=== PATIENT | female | born 1990 | race African-American/Black ===

== ENCOUNTER 2018-06-22 04:16 | Inpatient (IN) | payer OTHER ==
--- NOTE | 2018-06-22 04:25 | PDOC ---
History of Present Illness - General Chief Complaint: Chest Pain Stated Complaint: CHEST PAIN/BACK PAIN 35 WEEKS Time Seen by Provider: 06/22/18 04:19 History Source: Patient - History of Present Illness Initial Comments: 06/22/18 04:25 The patient is a 27 year old female with a PMH of obesity, anemia at a self reported 35 weeks gestation who presents to the ED c/o acute onset of chest pain that radiates to her back. Pain started at 10:30 a.m. yesterday morning and progressively worsened prompting her visit to the ED this morning. Pain is sharp, radiates to her back and worse with deep breaths or lying down. No previous h/o similar pain. No prior evaluation by environmental scientists. Recent evaluation by sterilizer machine operator last week where she was told her cervix was dilated. Most recent U/S @ 33 weeks. The patient denies abdominal pain, diarrhea/constipation, nausea/vomiting, dysuria/hematuria, recent travel or sick contacts. NKDA Dr. Ching Santana M.D. OB-Auto Fleet Manager: Dr. Oswald Past History - Past Medical History Allergies/Adverse Reactions: Allergies Allergy/AdvReac Type Severity Reaction Status Date / Time No Known Allergies Allergy Verified 06/22/18 04:33 Home Medications: Ambulatory Orders NK [No Known Home Medication] 06/22/18 Review of Systems - Review of Systems Constitutional: No: Chills, Fever HEENTM: No: Blurred Vision, Hearing Loss Respiratory: Yes: Shortness of Breath. No: Cough, Wheezing Cardiac (ROS): Yes: Chest Pain. No: Lightheadedness, Palpitations, Syncope ABD/GI: No: Constipated, Diarrhea, Nausea, Vomiting *Physical Exam - Physical Exam General Appearance: Yes: Nourished, Appropriately Dressed HEENT: positive: Normal Voice, Hearing Grossly Normal Neck: positive: Trachea midline, Supple Respiratory/Chest: positive: Lungs Clear, Normal Breath Sounds Cardiovascular: positive: S1, S2. negative: Edema, JVD Vascular Pulses: Dorsalis-Pedis (R): 2+, Doralis-Pedis (L): 2+ Gastrointestinal/Abdominal: positive: Normal Bowel Sounds, Soft Extremity: positive: Normal Capillary Refill, Normal Inspection Integumentary: positive: Normal Color, Dry, Warm Neurologic: positive: Fully Oriented, Alert Heart Score/ECG Review - ECG Impressions Comment:: 06/22/18 06:42 HR 121, TWI in V3-V6, no PHYLLIS/STD; no previous ECG in EMR ED Treatment Course - LABORATORY CBC & Chemistry Diagram: 06/22/18 05:31 06/22/18 05:31 Medical Decision Making - Medical Decision Making 06/22/18 04:27 27 year old @ self-reported 35 weeks gestation who presents with acute onset of chest pain. Tachycardic (100's) other VS unremarkable.. Frontal diagnosis: r/o ACS, r/o PE, Myocarditis, GERD, Esophageal spasm, physiologic pains of . Will obtain EKG, Troponin, D-Dimer ( adjusted), T& S (to evaluate for the need for Rhogam, UA to evaluate for proteinuria. Patient to present to L&D following medical stabilization in ED. 06/22/18 05:42 Patient reassessed @ bedside Remains tachycardic (100's) other VSS Labs pending EKG shows TWI in V3-V6; no previous EKG in EMR 06/22/18 06:02 Hb 8.6, MCV 78.5 - likely 2/2 dilutional anemia of Leukocytosis 14.2 - likely reactive 2/2 to 06/22/18 06:21 Troponin 0.17 -? demand ischemia O2 NC Patient requires further cardiac evaluation in light of EKG and elevated Troponin in the setting of Heart Score 3 06/22/18 06:22 D-Dimer 1191, wnL for 3rd trimester of . 06/22/18 06:28 L&D to come evaluate patient @ bedside Patient notes pinkish toilet paper when urinating - UA pending UA/Urine Cx pending 06/22/18 06:35 L&D @ bedside, Doppler: FHR 139-170 06/22/18 06:41 Hospitalist microblogged 06/22/18 06:43 Repeat VS 104/55, HR 104 Patient counseled on plan of care 06/22/18 07:07 Patient signed out to Dr. Bland (Resident) and Dr. Garza (Attending). UA pending Hospitalist Microblogged *DC/Admit/Observation/Transfer Diagnosis at time of Disposition: Chest pain - Discharge Dispostion Condition at time of disposition: Fair Decision to Admit order: Yes - Referrals Referrals: ON STAFF,NOT [Primary Care Provider] - - Patient Instructions - Post Discharge Activity
[2018-06-22] MEDS ORDERED: ACETAMINOPHEN 1000 MG/100 ML VIAL (NON FORMULARY) IVPB ONE (04:28)
[2018-06-22] MEDS ORDERED: SODIUM CHLORIDE 0.9% 500 ML INFUS.BAG IV ONE ×2 (04:55→18:01)
--- NOTE | 2018-06-22 05:26 | PDOC ---
Attending Attestation - Resident Resident Name: BrendaLisa - ED Attending Attestation I have performed the following: I have examined & evaluated the patient, The case was reviewed & discussed with the resident, I agree w/resident's findings & plan - HPI HPI: 06/22/18 05:25 Pt comes with tachycardia and SOB in . She is at risk for PE. We will check a d-dimer - Physicial Exam PE: 06/22/18 05:26 Agree with resident exam - Medical Decision Making 06/22/18 05:26 Pt has an EKG that shows lateral flipped T waves and she has tachycardia 06/22/18 06:33 SHe has a +trop; she has low Hb/HCT; she has demand ischemia. She will be admitted to telemetry; SHe is getting monitoring now. 06/22/18 07:00 corrected d-dimer is normal range. 06/22/18 07:36 signed out to the day team Heart Score/ECG Review - ECG Intrepretation Rhythm: Regular Rhythm - Dawn Dawn: Normal - P and NE Prominent R with upright T in V1 (true posterior MD): No Delta Wave(s) Present: No WPW: No - QRS Poor R Wave Progression: No Q Wave Present: No - ST and T Early Repolarization: No Non Specific ST-T Wave changes: Yes Flattened T Waves: No Prolonged Q-T Interval: No - ECG Impressions Normal ECG: Yes Non-specific ST Elevation: No Ischemic Changes: Yes (lateral flipped t) Bradycardia: No Torsades nils Pointes: No WPW: No
[2018-06-22 05:43] LABS: BASO % 0.3 % (0-2.0); EOS % 0.1 % (0-4.5); HEMOGLOBIN 8.6 GM/dL (10.7-15.3); LYMPH % 8.8 % (8-40); MCH 25.9 pg (25.7-33.7); MCHC 32.9 g/dl (32.0-36.0); MEAN CELL VOLUME 78.5 fl (80-96); MEAN PLT VOLUME 8.2 fl (7.5-11.1); MONO % 4.3 % (3.8-10.2); NEUT % 86.5 % (42.8-82.8); PLATELET COUNT 262 K/MM3 (134-434); RBC 3.32 M/mm3 (3.60-5.2); RDW 16.3 % (11.6-15.6); WHITE BLOOD COUNT 14.2 K/mm3 (4.0-10.0)
[2018-06-22] MEDS ORDERED: ACETAMINOPHEN INJECTION 100 ML IVPB ONE (05:43)
[2018-06-22 06:15] LABS: ALBUMIN 2.6 g/dl (3.4-5.0); ALK PHOS 130 U/L (45-117); ANION GAP 9 MMOL/L (8-16); BILIRUBIN,TOTAL 0.2 mg/dL (0.2-1); BLOOD UREA NITROGEN 8 mg/dL (7-18); CALCIUM 8.2 mg/dL (8.5-10.1); CHLORIDE 105 mmol/L (98-107); CO2 23 mmol/L (21-32); CREATININE 0.6 mg/dL (0.55-1.3); GLUCOSE,RANDOM 120 mg/dL (74-106); POTASSIUM 3.5 mmol/L (3.5-5.1); SGOT/AST 10 U/L (15-37); SGPT/ALT 15 U/L (13-61); SODIUM 137 mmol/L (136-145); TOT PROT 6.7 g/dl (6.4-8.2)
--- NOTE | 2018-06-22 06:27 | PDOC ---
Attending Attestation - Resident Resident Name: Lisa Gutierrez - ED Attending Attestation I have performed the following: I have examined & evaluated the patient, The case was reviewed & discussed with the resident, I agree w/resident's findings & plan - HPI HPI: 06/22/18 06:25 Pt comes with chest pain and tachycardia - Physicial Exam PE: 06/22/18 06:26 Pt has tachy; she is SOB and she is 35 weeks . 06/22/18 06:26 Agree with resident exam
[2018-06-22 09:01] LABS: URINE APPEARANCE CLEAR; URINE BILIRUBIN NEGATIVE (<2.0 mg/dL); URINE COLOR LTYELLOW; URINE GLUCOSE (UA) NEGATIVE (NEGATIVE); URINE KETONE NEGATIVE (NEGATIVE); URINE LEUK ESTERASE 2+ (NEGATIVE); URINE NITRITE NEGATIVE (NEGATIVE); URINE PROTEIN NEGATIVE (NEGATIVE); URINE UROBILINOGEN NEGATIVE mg/dL (0.2-1.0)
[2018-06-22 09:30] LABS: EPI CELLS RARE /HPF (FEW)
--- NOTE | 2018-06-22 10:28 | EKG ---
Test Reason : Blood Pressure : / mmHG Vent. Rate : 121 BPM Atrial Rate : 121 BPM P-R Int : 138 ms QRS Dur : 082 ms QT Int : 310 ms P-R-T Axes : 055 049 026 degrees QTc Int : 440 ms SINUS TACHYCARDIA NONSPECIFIC T WAVE ABNORMALITY ABNORMAL ECG NO PREVIOUS ECGS AVAILABLE Confirmed by LUISITO MORALES MD ([id number]) on 06/22/2018 10:27:45 AM Referred By: Confirmed By:LUISITO MORALES MD
[2018-06-22] MEDS ORDERED: HEPARIN NA (PORCINE) 5,000 UNITS/ML 1ML VIAL IVPUSH PRN ×2 (13:22)
--- NOTE | 2018-06-22 13:23 | CON.CARD ---
Consult Consult Specialty:: Cardiology Referred by:: ER Reason for Consultation:: Cardiac evaluation - History of Present Illness Chief Complaint: Chest pain and SOB History of Present Illness: Patient is a 27 year old female with history of bronchial asthma who is currently 35 weeks (1st ) complained of chest discomfort and shortness of breath that started yesterday morning. She did not seek medical attention and took a nap instead. She woke up at 4 pm but her symptoms continued with shortness of breath. She used albuterol but without much help and stayed home until 4 am when she decided to come into the ED. ECG revealed sinus tachycardia with ST-T wave abnormalities. Troponin was elevated at 0.17. She denies chest pain at the moment and she is breathing comfortably but still complains when she is supine. She feels better sitting or standing. She denies fever or chills. Denies nausea, vomiting, diarrhea or abdominal pain. She denies headache or lightheadedness. She complains of some blood in her stool, but denies history of hemorrhoids. She denies history of syncope. She has been compliant with care. - History Source History Provided By: Patient, Family Member, Medical Record Limitations to Obtaining History: No Limitations - Past Medical History Cardio/Vascular: No: HTN, Hyperlipdemia Pulmonary: Yes: Asthma ...: Yes (35 weeks) Heme/Onc: Yes: Anemia Endocrine: No: Diabetes Mellitus - Past Surgical History Past Surgical History: Yes: Tonsillectomy - Alcohol/Substance Use Hx Alcohol Use: No - Smoking History Smoking history: Never smoked Have you smoked in the past 12 months: No Home Medications - Allergies Allergies/Adverse Reactions: Allergies Allergy/AdvReac Type Severity Reaction Status Date / Time No Known Drug Allergies Allergy Verified 06/22/18 09:39 pepper (genus Capsicum) Allergy Itching Verified 06/22/18 09:39 - Home Medications Home Medications: Ambulatory Orders Vit No.129/Iron/Folic [ One Daily Tablet] 1 tab PO DAILY Family Disease History - Family Disease History Family History: Denies Review of Systems - Review of Systems Constitutional: denies: Chills, Fever Cardiovascular: reports: Chest Pain, Shortness of Breath. denies: Palpitations Respiratory: reports: SOB, SOB on Exertion. denies: Cough, Hemoptysis, Orthopnea, PND, Wheezing Gastrointestinal: denies: Abdominal Pain, Constipation, Diarrhea, Melena, Nausea , Rectal Bleeding, Vomiting Genitourinary: denies: Dysuria, Hematuria Musculoskeletal: denies: Back Pain, Joint Pain Neurological: denies: Dizziness, Headache, Seizure, Syncope Vital Signs: Vital Signs Temperature 97.9 F 06/22/18 07:29 Pulse Rate 119 H 06/22/18 11:09 Respiratory Rate 18 06/22/18 11:09 Blood Pressure 120/64 06/22/18 11:09 O2 Sat by Pulse Oximetry (%) 98 06/22/18 11:09 Eyes: Yes: PERRL HENT: Yes: Atraumatic Neck: Yes: Supple Respiratory: Yes: CTA Bilaterally Gastrointestinal: Yes: Normal Bowel Sounds, Soft. No: Tenderness Cardiovascular: Yes: Regular Rate and Rhythm, Tachycardia JVD: No Carotid Bruit: No PMI: Non-Displaced Heart Sounds: Yes: S1, S2 Murmur: No: Systolic Murmur, Diastolic Murmur Edema: No - Other Data Labs, Other Data: CBC, BMP 06/22/18 05:31 06/22/18 05:31 Troponin, BNP 06/22/18 05:31 Troponin I 0.17 H Laboratory Results - last 24 hr 06/22/18 06/22/18 06/22/18 05:31 05:31 05:31 WBC 14.2 H RBC 3.32 L Hgb 8.6 L Hct 26.0 L MCV 78.5 L MCH 25.9 MCHC 32.9 RDW 16.3 H Plt Count 262 MPV 8.2 Absolute Neuts (auto) 12.3 H Neutrophils % 86.5 H Lymphocytes % 8.8 Monocytes % 4.3 Eosinophils % 0.1 Basophils % 0.3 Nucleated RBC % 0 D-Dimer Sodium 137 Potassium 3.5 Chloride 105 Carbon Dioxide 23 Anion Gap 9 BUN 8 Creatinine 0.6 Creat Clearance w eGFR > 60 Random Glucose 120 H Calcium 8.2 L Total Bilirubin 0.2 AST 10 L ALT 15 Alkaline Phosphatase 130 H Creatine Kinase Troponin I Total Protein 6.7 Albumin 2.6 L Urine Color Urine Appearance Urine pH Ur Specific [place] Urine Protein Urine Glucose (UA) Urine Ketones Urine Blood Urine Nitrite Urine Bilirubin Urine Urobilinogen Ur Leukocyte Esterase Urine WBC (Auto) Urine RBC (Auto) Ur Epithelial Cells Stool Occult Blood Blood Type O POSITIVE Antibody Screen Negative 06/22/18 06/22/18 06/22/18 05:31 05:31 06:40 WBC RBC Hgb Hct MCV MCH MCHC RDW Plt Count MPV Absolute Neuts (auto) Neutrophils % Lymphocytes % Monocytes % Eosinophils % Basophils % Nucleated RBC % D-Dimer 1191 H Sodium Potassium Chloride Carbon Dioxide Anion Gap BUN Creatinine Creat Clearance w eGFR Random Glucose Calcium Total Bilirubin AST ALT Alkaline Phosphatase Creatine Kinase 52 Troponin I 0.17 H Total Protein Albumin Urine Color Urine Appearance Urine pH Ur Specific [place] Urine Protein Urine Glucose (UA) Urine Ketones Urine Blood Urine Nitrite Urine Bilirubin Urine Urobilinogen Ur Leukocyte Esterase Urine WBC (Auto) Urine RBC (Auto) Ur Epithelial Cells Stool Occult Blood Negative Blood Type Antibody Screen 06/22/18 06/22/18 07:24 09:15 WBC RBC Hgb Hct MCV MCH MCHC RDW Plt Count MPV Absolute Neuts (auto) Neutrophils % Lymphocytes % Monocytes % Eosinophils % Basophils % Nucleated RBC % D-Dimer Sodium Potassium Chloride Carbon Dioxide Anion Gap BUN Creatinine Creat Clearance w eGFR Random Glucose Calcium Total Bilirubin AST ALT Alkaline Phosphatase Creatine Kinase Troponin I Total Protein Albumin Urine Color Ltyellow Urine Appearance Clear Urine pH 6.0 Ur Specific [place] 1.014 Urine Protein Negative Urine Glucose (UA) Negative Urine Ketones Negative Urine Blood Negative Urine Nitrite Negative Urine Bilirubin Negative Urine Urobilinogen Negative Ur Leukocyte Esterase 2+ H Urine WBC (Auto) 15 Urine RBC (Auto) <1 Ur Epithelial Cells Rare Stool Occult Blood Blood Type O POSITIVE Antibody Screen Sinus tachycardia with ST-T abnormalities Echo: Pending Imaging - Results EKG: Report Reviewed Problem List - Problems (1) Shortness of breath Code(s): R06.02 - SHORTNESS OF BREATH (2) 35 weeks gestation of Code(s): Z3A.35 - 35 WEEKS GESTATION OF (3) Bronchial asthma Code(s): J45.909 - UNSPECIFIED ASTHMA, UNCOMPLICATED (4) Anemia Code(s): D64.9 - ANEMIA, UNSPECIFIED (5) Chest pain Code(s): R07.9 - CHEST PAIN, UNSPECIFIED Assessment/Plan 1. Chest pain and SOB, etiology to be determined 2. Clinical presentation suggests possibility of pulmonary embolism which needs to be ruled out with elevated troponin and above symptoms 3. 35 weeks 4. History of bronchial asthma 5. Anemia PLAN: 1. Consider Heparin IV vs. Lovenox 2. Further imaging to rule out pulmonary embolism - consider V/Q or CT whichever is safe with . Consult MATH INTERVENTIONIST 3. Echocardiography to assess LV/RV and valvular function. Check for RV strain 4. Lower extremity Doppler 5. If above positive, may need hypercoagulable work up and Hematology consultation 6. Stool guaic and further anemia work up Further plans are to follow. Discussed with ER physician Epi Mchugh MD
[2018-06-22] MEDS ORDERED: HEPARIN INFUSION - 25,000 UNITS/500 ML INFUS.BAG IVPB SCH (13:30)
--- NOTE | 2018-06-22 13:42 | PDOC ---
*Physical Exam - Vital Signs Last Vital Signs Temp Pulse Resp BP Pulse Ox 97.9 F 119 H 18 120/64 98 06/22/18 07:29 06/22/18 11:09 06/22/18 11:09 06/22/18 11:09 06/22/18 11:09 ED Treatment Course - LABORATORY CBC & Chemistry Diagram: 06/22/18 05:31 06/22/18 05:31 - ADDITIONAL ORDERS Additional order review: Laboratory Results 06/22/18 06/22/18 06/22/18 07:24 06:40 05:31 D-Dimer 1191 H Sodium Potassium Chloride Carbon Dioxide Anion Gap BUN Creatinine Creat Clearance w eGFR Random Glucose Calcium Total Bilirubin AST ALT Alkaline Phosphatase Creatine Kinase Troponin I Total Protein Albumin Urine Color Ltyellow Urine Appearance Clear Urine pH 6.0 Ur Specific [place] 1.014 Urine Protein Negative Urine Glucose (UA) Negative Urine Ketones Negative Urine Blood Negative Urine Nitrite Negative Urine Bilirubin Negative Urine Urobilinogen Negative Ur Leukocyte Esterase 2+ H Urine WBC (Auto) 15 Urine RBC (Auto) <1 Ur Epithelial Cells Rare Stool Occult Blood Negative Blood Type Antibody Screen 06/22/18 06/22/18 06/22/18 05:31 05:31 05:31 D-Dimer Sodium 137 Potassium 3.5 Chloride 105 Carbon Dioxide 23 Anion Gap 9 BUN 8 Creatinine 0.6 Creat Clearance w eGFR > 60 Random Glucose 120 H Calcium 8.2 L Total Bilirubin 0.2 AST 10 L ALT 15 Alkaline Phosphatase 130 H Creatine Kinase 52 Troponin I 0.17 H Total Protein 6.7 Albumin 2.6 L Urine Color Urine Appearance Urine pH Ur Specific [place] Urine Protein Urine Glucose (UA) Urine Ketones Urine Blood Urine Nitrite Urine Bilirubin Urine Urobilinogen Ur Leukocyte Esterase Urine WBC (Auto) Urine RBC (Auto) Ur Epithelial Cells Stool Occult Blood Blood Type O POSITIVE Antibody Screen Negative 06/22/18 05:31 RBC 3.32 L MCV 78.5 L MCHC 32.9 RDW 16.3 H MPV 8.2 Neutrophils % 86.5 H Lymphocytes % 8.8 Monocytes % 4.3 Eosinophils % 0.1 Basophils % 0.3 - Medications Given in the ED: ED Medications Discontinued Medications Generic Name Dose Route Start Last Admin Trade Name Freq PRN Reason Stop Dose Admin Acetaminophen 1,000 mg 06/22/18 04:28 06/22/18 05:45 Ofirmev Injection - IVPB 06/22/18 04:29 1,000 mg ONCE ONE Administration Sodium Chloride 1,000 ml 06/22/18 04:55 06/22/18 05:45 Normal Saline - IV 06/22/18 04:56 1,000 ml ONCE ONE Administration Medical Decision Making - Medical Decision Making Patient signed out with chest pain, positive, d-dimer, and positive troponin. I originalyl spoke with Dr. Frank who agreed to acept the patient and I was told to place the admission under Dr. Oswald. I eventually spoke to a Dr. Treasure Enriquez who was covering the service from 8 Am onwards. She was originally concerned that the patient may need to be transferred. I relayed her concerns to the Internal Communications Specialist (Dr. Epi Mchugh) who evaluated the patient at bedside and felt that she should be started on Heparin drip then have a PE ruled out. He felt that the patient was stable enough to remain in [facility]. Dr. Enriquez was having technical difficulties with the admission orders and stated that she would place them once the technical difficulties were resolved at her clinic. CTA (r/o pe) and heparin drip order were placed. Also, patient had a UTI for which we administered ceftriaxone 1 G. 06/22/18 13:37 *DC/Admit/Observation/Transfer Diagnosis at time of Disposition: Chest pain Qualifiers: Chest pain type: unspecified Qualified Code(s): R07.9 - Chest pain, unspecified - Discharge Dispostion Condition at time of disposition: Fair - Referrals - Patient Instructions - Post Discharge Activity
--- NOTE | 2018-06-22 13:51 | EKG ---
Test Reason : Blood Pressure : / mmHG Vent. Rate : 110 BPM Atrial Rate : 110 BPM P-R Int : 134 ms QRS Dur : 082 ms QT Int : 320 ms P-R-T Axes : 048 025 031 degrees QTc Int : 433 ms SINUS TACHYCARDIA NONSPECIFIC T WAVE ABNORMALITY ABNORMAL ECG WHEN COMPARED WITH ECG OF 22-JUN-2018 04:25, NO SIGNIFICANT CHANGE WAS FOUND Confirmed by MARISELA PARIKH MD ([id number]) on 06/22/2018 1:51:18 PM Referred By: Confirmed By:MARISELA PARIKH MD
[2018-06-22] MEDS ORDERED: HEPARIN INFUSION - 25,000 UNITS/500 ML INFUS.BAG IVPB ONE (14:19)
[2018-06-22] MEDS ORDERED: HEPARIN NA (PORCINE) 5,000 UNITS/ML 1ML VIAL ONE (14:19)
[2018-06-22] MEDS ORDERED: IBUPROFEN 600 MG TABLET (FP) PO PRN (14:56)
[2018-06-22] MEDS ORDERED: IBUPROFEN 800 MG/8 ML IJ IVPB PRN (14:56)
[2018-06-22] MEDS ORDERED: ONDANSETRON 4 MG/2 ML VIAL IVPUSH PRN (14:56)
[2018-06-22] MEDS ORDERED: NITROFURANTOIN MACROCRYSTAL 50 MG CAPSULE (FP) PO SCH (15:00)
--- NOTE | 2018-06-22 15:37 | ECHO ---
Name: TAVARES RAMIREZ Exam:Adult Echocardiogram Study Date: 06/22/2018 02:05 PM Age: 27 yrs Reason For Study: R/O RV STRAIN Height: 67 in Weight: 266 lb BSA: 2.3 m2 MMode/2D Measurements & Calculations IVSd: 0.95 cm Ao root diam: 2.6 cm LVIDd: 4.5 cm LA dimension: 3.5 cm LVIDs: 3.2 cm LVPWd: 0.88 cm EDV(Teich): 92.8 ml TAPSE: 3.5 cm ESV(Teich): 42.3 ml Doppler Measurements & Calculations MV E max julian: 109.6 cm/sec Ao V2 max: 152.8 cm/sec MV A max julian: 79.0 cm/sec Ao max P.3 mmHg MV E/A: 1.4 MV dec time: 0.17 sec LV V1 max P.8 mmHg TR max julian: 159.3 cm/sec LV V1 max: 66.8 cm/sec TR max P.2 mmHg Med Peak E' Julian: 11.4 cm/sec Med E/e': 9.6 Lat Peak E' Julian: 12.1 cm/sec Lat E/e': 9.1 Procedure A complete two-dimensional transthoracic echocardiogram was performed (2D, M-mode, Doppler and color flow Doppler). Left Ventricle The left ventricle is normal in size. Left ventricular systolic function is normal. Ejection Fraction = 60- 65%. No regional wall motion abnormalities noted. Right Ventricle The right ventricle is normal size. The right ventricular systolic function is normal. RV systolic TD I is 14 cm/s. Atria The left atrial size is normal. Right atrial size is normal. Mitral Valve The mitral valve is normal in structure and function. There is no mitral regurgitation noted. Tricuspid Valve The tricuspid valve is normal in structure and function. There is mild tricuspid regurgitation. Aortic Valve The aortic valve is normal in structure and function. No aortic regurgitation is present. Pulmonic Valve The pulmonic valve is not well visualized. Great Vessels The aortic root is normal size. Pericardium/Pleura There is no pericardial effusion. Interpretation Summary The left ventricle is normal in size. Left ventricular systolic function is normal. No regional wall motion abnormalities noted. Ejection Fraction = 60-65%. The right ventricular systolic function is normal. The left atrial size is normal. Right atrial size is normal. There is mild tricuspid regurgitation. There is no pericardial effusion. Previous study is not available for comparison Epi Mchugh MD 06/22/2018 03:36 PM
[2018-06-22] MEDS ORDERED: CEFTRIAXONE 1,000 MG in DEXTROSE 5%-WATER - 50 ML IVPB ONE (16:00)
[2018-06-22] MEDS ORDERED: CEFTRIAXONE 1 GM/50 ML BAG ONE (16:02)
--- NOTE | 2018-06-22 19:28 | HP ---
Admitting History and Physical - Primary Care Physician PCP: Treasure Enriquez - Admission Chief Complaint: 27yo P0 @ 35.4wks presented to ER on 06/22/18 with c/o waking up with chest pain, had one set of abnormal cardiac enzymes. Reports no contructions, no vaginal bleeding, no Leackage of fluid and normal movement History of Present Illness: She reports not taking any pain medication, reports that pain is mainly positional and travels down to her stomach. She did not report palpitations, SOB or loss of consciousness History Source: Patient Limitations to Obtaining History: No Limitations - Past Medical History Cardiovascular: No: HTN, Hyperlipdemia Pulmonary: Yes: Asthma ...: Yes (35 weeks) ...: 2 ...Para: 0 Heme/Onc: Yes: Anemia Endocrine: No: Diabetes Mellitus - Past Surgical History Past Surgical History: Yes: Tonsillectomy Additional Past Surgical History: Breast reduction - Smoking History Smoking history: Never smoked Have you smoked in the past 12 months: No - Alcohol/Substance Use Hx Alcohol Use: No - Social History History of Recent Travel: No Home Medications - Allergies Allergies/Adverse Reactions: Allergies Allergy/AdvReac Type Severity Reaction Status Date / Time No Known Drug Allergies Allergy Verified 06/22/18 09:39 pepper (genus Capsicum) Allergy Itching Verified 06/22/18 09:39 - Home Medications Home Medications: Ambulatory Orders Vit No.129/Iron/Folic [ One Daily Tablet] 1 tab PO DAILY Acetaminophen [Tylenol -] 1,000 mg PO Q6H #100 tablet 06/23/18 Family Disease History - Family Disease History Family History: Denies Review of Systems - Review of Systems Constitutional: reports: No Symptoms Eyes: reports: No Symptoms HENT: reports: No Symptoms Neck: reports: No Symptoms Cardiovascular: reports: Chest Pain Respiratory: reports: No Symptoms Gastrointestinal: reports: Abdominal Pain (Upper stomach) Genitourinary: reports: No Symptoms Breasts: reports: No Symptoms Reported Musculoskeletal: reports: Back Pain (Upper back) Integumentary: reports: No Symptoms Neurological: reports: No Symptoms Endocrine: reports: No Symptoms Hematology/Lymphatic: reports: No Symptoms Psychiatric: reports: No Symptoms Physical Examination Vital Signs: Vital Signs Temperature 98 F 06/22/18 17:02 Pulse Rate 105 H 06/22/18 17:02 Respiratory Rate 17 06/22/18 17:02 Blood Pressure 106/64 06/22/18 17:02 O2 Sat by Pulse Oximetry (%) 99 06/22/18 17:02 Constitutional: Yes: Well Nourished, No Distress, Calm, Moderate Distress Eyes: Yes: WNL HENT: Yes: WNL Neck: Yes: WNL Cardiovascular: Yes: Regular Rate and Rhythm, Tachycardia Respiratory: Yes: WNL, Regular, CTA Bilaterally Gastrointestinal: Yes: WNL, Tenderness (mild epigastric) Renal/: Yes: Other (VE: 3-4cm/50%/-4 FHR: 130's no palpable contructions) Breast(s): Yes: WNL Musculoskeletal: Yes: Back Pain Extremities: Yes: WNL Edema: No Labs: CBC, BMP 06/22/18 05:31 06/22/18 05:31 Imaging - Results Cat Scan: Report Reviewed (No evidance of Pulmonary embolism) Other: Report Reviewed (Lower Extremity doppler - no evidance of DVT) Assessment/Plan 27yo P 0 @ 35.4 weeks, stable with Chest pain and one abnormal cardiac enzyme x 1, second set wnl Admitted to Telemetry for observation Likely GERD and musculosceletal discomfort will give trial of Maalox and Tylenol NST in am
[2018-06-22] MEDS ORDERED: ACETAMINOPHEN 325 MG TABLET (FP) PO PRN (21:02)
[2018-06-22] MEDS ORDERED: MAG HYDROX/AL HYDROX/SIMETH 30 ML UNIT-DOSE CUP ONE (21:13)
[2018-06-22] MEDS ORDERED: MAG HYDROX/AL HYDROX/SIMETH 30 ML UNIT-DOSE CUP PO ONE (21:15)
[2018-06-22] MEDS ORDERED: MAG HYDROX/AL HYDROX/SIMETH 30 ML UNIT-DOSE CUP PO PRN (22:10)
--- NOTE | 2018-06-23 01:35 | HP ---
CHIEF COMPLAINT: chest pain PCP: Dr. Ching Santana HISTORY OF PRESENT ILLNESS: 27F G1 0000 w/ pmhx of asthma presents with acute onset chest pain that started on Friday at 10am. At the time, she states she was sitting down watching her boyfriend play video games. Pt states she has never had these symptoms in the past. She described the chest pain as chest pressure localized to the midsternum and rates it 7/10. It is intermittent and when she takes a deep breath or changes her position, she reports the chest pain becomes very sharp and makes it difficult for her to breath. She denies having these symptoms in the past, any recent trauma to the chest, or history of heart disease. She does have history of asthma in which she uses her Albuterol inhaler PRN and did a nebulizer treatment at home with no symptomatic improvement. She additionally admits to frontal headache associated with her chest pressure and sob. She denies any history of recent travel. The following workup was done upon admission: EKG showed sinus tachy with lateral flipped T waves, U/A showed 15 WBC, 2+ LE; H /H 8.6/26, Trop 0.17 --> neg Pt given IV Heparin drip due to concern of PE, however CTA r/o PE and heparin was d/c. Pt given IV Ceftriaxone due to +U/A for UTI. Pt admitted to [facility] for further cardiac monitoring. Echo showed no regional wall motion abnormalities, EF 60-65%, Mild TR, no pericardial effusion. Recent Travel: Denies PAST MEDICAL HISTORY: Bronchial asthma PAST SURGICAL HISTORY: tonsillectomy Social History: Smoking: Denies Alcohol: Denies Drugs: Denies Family History: Denies Allergies No Known Drug Allergies Allergy (Verified 06/22/18 09:39) pepper (genus Capsicum) Allergy (Verified 06/22/18 09:39) Itching HOME MEDICATIONS: Home Medications Medication Instructions Recorded Vit No.129/Iron/Folic 1 tab PO DAILY 06/22/18 [ One Daily Tablet] REVIEW OF SYSTEMS CONSTITUTIONAL: Denies fever, chills, diaphoresis, generalized weakness, malaise , loss of appetite HEENT: Denies rhinorrhea, nasal congestion, throat pain, throat swelling, difficulty swallowing, mouth swelling, ear pain, eye pain, visual changes CARDIOVASCULAR: Admits to chest pain and palpitations; Denies syncope, lightheadedness, peripheral edema RESPIRATORY: Admits to shortness of breath, dyspnea with exertion, orthopnea; Denies cough GASTROINTESTINAL: Denies abdominal pain, abdominal distension, nausea, vomiting , diarrhea, constipation, melena, hematochezia GENITOURINARY: Denies dysuria, frequency, urgency, hesitancy, hematuria, flank pain, genital pain MUSCULOSKELETAL: Denies myalgia, arthralgia, joint swelling, back pain, neck pain NEUROLOGIC: Admits to frontal headache; Deines dizziness, unsteady gait, seizure , mental status changes, bladder or bowel incontinence PHYSICAL EXAMINATION Vital Signs - 24 hr 06/22/18 06/22/18 06/22/18 04:20 05:31 07:29 Temperature 98.3 F 97.9 F Pulse Rate 121 H 107 H Pulse Rate [ 92 H Apical] Respiratory 16 17 Rate Blood Pressure 132/76 Blood Pressure 110/55 L [Right Arm] O2 Sat by Pulse 100 97 100 Oximetry (%) 06/22/18 06/22/18 06/22/18 09:15 09:52 11:09 Temperature Pulse Rate 96 H Pulse Rate [ 104 H 119 H Apical] Respiratory 20 18 18 Rate Blood Pressure 107/54 L Blood Pressure 100/64 120/64 [Right Arm] O2 Sat by Pulse 99 98 Oximetry (%) 06/22/18 06/22/18 17:02 20:10 Temperature 98 F 98.1 F Pulse Rate Pulse Rate [ 105 H 103 H Apical] Respiratory 17 24 H Rate Blood Pressure Blood Pressure 106/64 123/61 [Right Arm] O2 Sat by Pulse 99 100 Oximetry (%) GENERAL: AAOx3. Mild discomfort, but sitting in bed, cooperative and able to answer all questions. HEENT: Normal with no signs of trauma. EOMI, NADYA. Moist mucus membranes. NECK: Normal range of motion, supple without lymphadenopathy, JVD, or masses. LUNGS: Decreased breath sounds b/l bases, however has poor respiratory effort due to pain HEART: RRR. Normal S1, S2. No murmurs noted. Reproducible chest tenderness upon palpation. ABDOMEN: Gravid. Soft, NT/ND. : White vaginal discharge noted. MUSCULOSKELETAL: Normal range of motion at all joints. No bony deformities or tenderness. No CVA tenderness. UPPER EXTREMITIES: 2+ pulses, warm, well-perfused. No peripheral edema. LOWER EXTREMITIES: 2+ pulses, warm, well-perfused. No peripheral edema. NEUROLOGICAL: Normal speech. Responds to commands. Laboratory Results - last 24 hr 06/22/18 06/22/18 06/22/18 05:31 05:31 05:31 WBC 14.2 H RBC 3.32 L Hgb 8.6 L Hct 26.0 L MCV 78.5 L MCH 25.9 MCHC 32.9 RDW 16.3 H Plt Count 262 MPV 8.2 Absolute Neuts (auto) 12.3 H Neutrophils % 86.5 H Lymphocytes % 8.8 Monocytes % 4.3 Eosinophils % 0.1 Basophils % 0.3 Nucleated RBC % 0 PTT (Actin FS) D-Dimer Sodium 137 Potassium 3.5 Chloride 105 Carbon Dioxide 23 Anion Gap 9 BUN 8 Creatinine 0.6 Creat Clearance w eGFR > 60 Random Glucose 120 H Calcium 8.2 L Total Bilirubin 0.2 AST 10 L ALT 15 Alkaline Phosphatase 130 H Creatine Kinase Troponin I Total Protein 6.7 Albumin 2.6 L Urine Color Urine Appearance Urine pH Ur Specific [place] Urine Protein Urine Glucose (UA) Urine Ketones Urine Blood Urine Nitrite Urine Bilirubin Urine Urobilinogen Ur Leukocyte Esterase Urine WBC (Auto) Urine RBC (Auto) Ur Epithelial Cells Stool Occult Blood Blood Type O POSITIVE Antibody Screen Negative 06/22/18 06/22/18 06/22/18 05:31 05:31 06:40 WBC RBC Hgb Hct MCV MCH MCHC RDW Plt Count MPV Absolute Neuts (auto) Neutrophils % Lymphocytes % Monocytes % Eosinophils % Basophils % Nucleated RBC % PTT (Actin FS) D-Dimer 1191 H Sodium Potassium Chloride Carbon Dioxide Anion Gap BUN Creatinine Creat Clearance w eGFR Random Glucose Calcium Total Bilirubin AST ALT Alkaline Phosphatase Creatine Kinase 52 Troponin I 0.17 H Total Protein Albumin Urine Color Urine Appearance Urine pH Ur Specific [place] Urine Protein Urine Glucose (UA) Urine Ketones Urine Blood Urine Nitrite Urine Bilirubin Urine Urobilinogen Ur Leukocyte Esterase Urine WBC (Auto) Urine RBC (Auto) Ur Epithelial Cells Stool Occult Blood Negative Blood Type Antibody Screen 06/22/18 06/22/18 06/22/18 07:24 09:15 12:25 WBC RBC Hgb Hct MCV MCH MCHC RDW Plt Count MPV Absolute Neuts (auto) Neutrophils % Lymphocytes % Monocytes % Eosinophils % Basophils % Nucleated RBC % PTT (Actin FS) D-Dimer Sodium Potassium Chloride Carbon Dioxide Anion Gap BUN Creatinine Creat Clearance w eGFR Random Glucose Calcium Total Bilirubin AST ALT Alkaline Phosphatase Creatine Kinase Troponin I < 0.02 Total Protein Albumin Urine Color Ltyellow Urine Appearance Clear Urine pH 6.0 Ur Specific [place] 1.014 Urine Protein Negative Urine Glucose (UA) Negative Urine Ketones Negative Urine Blood Negative Urine Nitrite Negative Urine Bilirubin Negative Urine Urobilinogen Negative Ur Leukocyte Esterase 2+ H Urine WBC (Auto) 15 Urine RBC (Auto) <1 Ur Epithelial Cells Rare Stool Occult Blood Blood Type O POSITIVE Antibody Screen 06/22/18 06/22/18 06/22/18 13:20 14:19 23:26 WBC RBC Hgb Hct MCV MCH MCHC RDW Plt Count MPV Absolute Neuts (auto) Neutrophils % Lymphocytes % Monocytes % Eosinophils % Basophils % Nucleated RBC % PTT (Actin FS) 32.8 33.4 D-Dimer Sodium Potassium Chloride Carbon Dioxide Anion Gap BUN Creatinine Creat Clearance w eGFR Random Glucose Calcium Total Bilirubin AST ALT Alkaline Phosphatase Creatine Kinase Troponin I Total Protein Albumin Urine Color Urine Appearance Urine pH Ur Specific [place] Urine Protein Urine Glucose (UA) Urine Ketones Urine Blood Urine Nitrite Urine Bilirubin Urine Urobilinogen Ur Leukocyte Esterase Urine WBC (Auto) Urine RBC (Auto) Ur Epithelial Cells Stool Occult Blood Negative Blood Type Antibody Screen IMAGING: * CTA: No obvious central PE seen. Peripheral vasc cannot be adequately evaluated. 2 x 1 cm R lower lobe superior segment opacity is noted which may present localized atelectasis vs. small infiltrate. Mild R lower lobe and minimal L lower lobe discoid ateletasis is seen. * Echo: LV normal in size. No regional wall motion abnormalities noted. EF 60-65 %. RV sys fxn is normal. L atrial size is normal. Mild TR. No pericardial effusion. * LE Duplex: No DVT identified in either leg. * EKG (06/22/18 @ 4:25)- sinus tachy, HR 121, QTc 440 ms; TWI in V4-6 * EKG (06/22/18 @ 11:18)- sinus tach, HR 110, QTc 433 ms; no evidence of ST-T changes or TWIs ASSESSMENT/PLAN: 27F G1 0000 w/ pmhx of asthma presents with acute onset chest pain x1 day admitted for cardiac monitoring. #Chest pain; unclear etiology, however PE and ACS are ruled out. -d-Dimer elevated at 1191 and pt was previously on Heparin drip due to concern of possible PE, however CTA was neg for PE and as a result, heparin was discontinued. -EKG showed sinus tachycardia with some T wave inversions; Trops have already peaked from 0.17 to <0.02, which may have been due to demand ischemia due to pt' s symptoms. Will repeat EKG. -Echo noted above; unremarkable for pericardial effusion, but will order ESR/ CRP for possible concern of pericarditis. -Tylenol 650 mg PO Q3H PRN for pain -Mylanta 30 mL Q6H PRN for dyspepsis -Zofran 4 Q6H IVP for nausea -Cardio consult (Dr. Mchugh); await recs -tele monitoring #Anemia; H/H 8.6/26, MCV 78.5 -Pt states she has known hx of anemia although has not taken any iron supplements in addition to her vitamins. She reports that her anemia was corrected via dietary changes and thus did not need any additional iron supplementation. -FOBT neg, no hx of hemorrhoids -May benefit from iron supplements #UTI; U/A showed 15 WBC, 2+ LE -IV Ceftriaxone given x1 dose #; ~35 weeks , 1st -Pt admitted under OBGYN service -Upon encounter, pt noticed watery discharge on her underwear while in the bathroom, then after urinating, she noticed a large amount of mucus discharge on the toilet paper. Denies any complaints of abdominal/labor pains. -Call made to Dr. Enriquez regarding pt's recent symptoms and message left; awaiting call back. May need transfer to OB unit if pt is showing signs of labor. #Prophylaxis -SCDs #FEN -encourage PO hydration -recheck lytes in AM -regular diet dispo -admit under OBGYN service -monitor on tele Dispo: We will continue to follow the patient. Thank you for this consultative opportunity. Visit type - Emergency Visit Emergency Visit: Yes ED Registration Date: 06/22/18 Care time: The patient presented to the Emergency Department on the above date and was hospitalized for further evaluation of their emergent condition. - New Patient This patient is new to me today: Yes Date on this admission: 06/23/18 - Critical Care Critical Care patient: No
--- NOTE | 2018-06-23 01:52 | CONSULT ---
Consultation: REQUESTING PROVIDER: CONSULT REQUEST: We have been asked to medically evaluate this patient for medical management of chest pain syndrome. HISTORY OF PRESENT ILLNESS: Patient is a 27 year old woman with a PMH of obesity, anemia at a self reported 35 weeks gestation who presents to the ED c/o acute onset of chest pain that radiates to her back. Pain started at 10:30 a.m. yesterday morning and progressively worsened prompting her visit to the ED this morning. Pain is sharp, radiates to her back and worse with deep breaths or lying down. No previous h/o similar pain. No prior evaluation by fitness and wellness instructor. Recent evaluation by glove machine operator last week where she was told her cervix was dilated. Most recent U/S @ 33 weeks. The patient denies abdominal pain, diarrhea/constipation , nausea/vomiting, dysuria/hematuria, recent travel or sick contacts. Since admission, she has had a CTA and no PE was found. She still has retrosternal chest pain when she moves or take a deep breath. Has had sinus tachycardia since admission and t wave inversion on EKG. She is on Rocephin for UTI. Has had anemia since the start of her . REVIEW OF SYSTEMS: CONSTITUTIONAL: Absent: fever, chills, diaphoresis, generalized weakness, malaise, loss of appetite, weight change HEENT: Absent: rhinorrhea, nasal congestion, throat pain, throat swelling, difficulty swallowing, mouth swelling, ear pain, eye pain, visual changes CARDIOVASCULAR: Has chest pain. Absent: syncope, palpitations, irregular heart rate, lightheadedness, peripheral edema RESPIRATORY: Absent: cough, shortness of breath, dyspnea with exertion, orthopnea, wheezing, stridor, hemoptysis GASTROINTESTINAL: Absent: abdominal pain, abdominal distension, nausea, vomiting, diarrhea, constipation, melena, hematochezia GENITOURINARY: Absent: dysuria, frequency, urgency, hesitancy, hematuria, flank pain, genital pain MUSCULOSKELETAL: Absent: myalgia, arthralgia, joint swelling, back pain, neck pain SKIN: Absent: rash, itching, pallor HEMATOLOGIC/IMMUNOLOGIC: Absent: easy bleeding, easy bruising, lymphadenopathy, frequent infections ENDOCRINE: Absent: unexplained weight gain, unexplained weight loss, heat intolerance, cold intolerance NEUROLOGIC: Absent: headache, focal weakness or paresthesias, dizziness, unsteady gait, seizure, mental status changes, bladder or bowel incontinence PSYCHIATRIC: Absent: anxiety, depression, suicidal or homicidal ideation, hallucinations. PHYSICAL EXAMINATION Vital Signs - 24 hr 06/22/18 06/22/18 06/22/18 04:20 05:31 07:29 Temperature 98.3 F 97.9 F Pulse Rate 121 H 107 H Pulse Rate [ 92 H Apical] Respiratory 16 17 Rate Blood Pressure 132/76 Blood Pressure 110/55 L [Right Arm] O2 Sat by Pulse 100 97 100 Oximetry (%) 06/22/18 06/22/18 06/22/18 09:15 09:52 11:09 Temperature Pulse Rate 96 H Pulse Rate [ 104 H 119 H Apical] Respiratory 20 18 18 Rate Blood Pressure 107/54 L Blood Pressure 100/64 120/64 [Right Arm] O2 Sat by Pulse 99 98 Oximetry (%) 06/22/18 06/22/18 17:02 20:10 Temperature 98 F 98.1 F Pulse Rate Pulse Rate [ 105 H 103 H Apical] Respiratory 17 24 H Rate Blood Pressure Blood Pressure 106/64 123/61 [Right Arm] O2 Sat by Pulse 99 100 Oximetry (%) GENERAL: Awake, alert, and fully oriented, in no acute distress. HEAD: Normal with no signs of trauma. EYES: Pupils equal, round and reactive to light, extraocular movements intact, sclera anicteric, conjunctiva clear. No lid lag. EARS, NOSE, THROAT: Ears normal, nares patent, oropharynx clear without exudates. Moist mucous membranes. NECK: Normal range of motion, supple without lymphadenopathy, JVD, or masses. LUNGS: Point tenderness on midsternal area. Breath sounds equal, clear to auscultation bilaterally. No wheezes, and no crackles. No accessory muscle use. HEART: Regular rate and rhythm, normal S1 and S2 without murmur, rub or gallop. ABDOMEN: Gravid uterus. Soft, nontender, not distended, normoactive bowel sounds , no guarding, no rebound, no masses. No hepatomegaly or splenomegaly. MUSCULOSKELETAL: Normal range of motion at all joints. No bony deformities or tenderness. No CVA tenderness. UPPER EXTREMITIES: 2+ pulses, warm, well-perfused. No cyanosis. No clubbing. Cap refill <2 seconds. No peripheral edema. LOWER EXTREMITIES: 2+ pulses, warm, well-perfused. No calf tenderness. No peripheral edema. NEUROLOGICAL: Cranial nerves II-XII intact. Normal speech. Normal gait. PSYCHIATRIC: Cooperative. Good eye contact. Appropriate mood and affect. SKIN: Warm, dry, normal turgor, no rashes or lesions noted. Laboratory Results - last 24 hr 06/22/18 06/22/18 06/22/18 05:31 05:31 05:31 WBC 14.2 H RBC 3.32 L Hgb 8.6 L Hct 26.0 L MCV 78.5 L MCH 25.9 MCHC 32.9 RDW 16.3 H Plt Count 262 MPV 8.2 Absolute Neuts (auto) 12.3 H Neutrophils % 86.5 H Lymphocytes % 8.8 Monocytes % 4.3 Eosinophils % 0.1 Basophils % 0.3 Nucleated RBC % 0 PTT (Actin FS) D-Dimer Sodium 137 Potassium 3.5 Chloride 105 Carbon Dioxide 23 Anion Gap 9 BUN 8 Creatinine 0.6 Creat Clearance w eGFR > 60 Random Glucose 120 H Calcium 8.2 L Total Bilirubin 0.2 AST 10 L ALT 15 Alkaline Phosphatase 130 H Creatine Kinase Troponin I Total Protein 6.7 Albumin 2.6 L Urine Color Urine Appearance Urine pH Ur Specific [place] Urine Protein Urine Glucose (UA) Urine Ketones Urine Blood Urine Nitrite Urine Bilirubin Urine Urobilinogen Ur Leukocyte Esterase Urine WBC (Auto) Urine RBC (Auto) Ur Epithelial Cells Stool Occult Blood Blood Type O POSITIVE Antibody Screen Negative 06/22/18 06/22/18 06/22/18 05:31 05:31 06:40 WBC RBC Hgb Hct MCV MCH MCHC RDW Plt Count MPV Absolute Neuts (auto) Neutrophils % Lymphocytes % Monocytes % Eosinophils % Basophils % Nucleated RBC % PTT (Actin FS) D-Dimer 1191 H Sodium Potassium Chloride Carbon Dioxide Anion Gap BUN Creatinine Creat Clearance w eGFR Random Glucose Calcium Total Bilirubin AST ALT Alkaline Phosphatase Creatine Kinase 52 Troponin I 0.17 H Total Protein Albumin Urine Color Urine Appearance Urine pH Ur Specific [place] Urine Protein Urine Glucose (UA) Urine Ketones Urine Blood Urine Nitrite Urine Bilirubin Urine Urobilinogen Ur Leukocyte Esterase Urine WBC (Auto) Urine RBC (Auto) Ur Epithelial Cells Stool Occult Blood Negative Blood Type Antibody Screen 06/22/18 06/22/18 06/22/18 07:24 09:15 12:25 WBC RBC Hgb Hct MCV MCH MCHC RDW Plt Count MPV Absolute Neuts (auto) Neutrophils % Lymphocytes % Monocytes % Eosinophils % Basophils % Nucleated RBC % PTT (Actin FS) D-Dimer Sodium Potassium Chloride Carbon Dioxide Anion Gap BUN Creatinine Creat Clearance w eGFR Random Glucose Calcium Total Bilirubin AST ALT Alkaline Phosphatase Creatine Kinase Troponin I < 0.02 Total Protein Albumin Urine Color Ltyellow Urine Appearance Clear Urine pH 6.0 Ur Specific [place] 1.014 Urine Protein Negative Urine Glucose (UA) Negative Urine Ketones Negative Urine Blood Negative Urine Nitrite Negative Urine Bilirubin Negative Urine Urobilinogen Negative Ur Leukocyte Esterase 2+ H Urine WBC (Auto) 15 Urine RBC (Auto) <1 Ur Epithelial Cells Rare Stool Occult Blood Blood Type O POSITIVE Antibody Screen 06/22/18 06/22/18 06/22/18 13:20 14:19 23:26 WBC RBC Hgb Hct MCV MCH MCHC RDW Plt Count MPV Absolute Neuts (auto) Neutrophils % Lymphocytes % Monocytes % Eosinophils % Basophils % Nucleated RBC % PTT (Actin FS) 32.8 33.4 D-Dimer Sodium Potassium Chloride Carbon Dioxide Anion Gap BUN Creatinine Creat Clearance w eGFR Random Glucose Calcium Total Bilirubin AST ALT Alkaline Phosphatase Creatine Kinase Troponin I Total Protein Albumin Urine Color Urine Appearance Urine pH Ur Specific [place] Urine Protein Urine Glucose (UA) Urine Ketones Urine Blood Urine Nitrite Urine Bilirubin Urine Urobilinogen Ur Leukocyte Esterase Urine WBC (Auto) Urine RBC (Auto) Ur Epithelial Cells Stool Occult Blood Negative Blood Type Antibody Screen Active Medications Generic Name Dose Route Start Last Admin Trade Name Freq PRN Reason Stop Dose Admin Acetaminophen 650 mg 06/22/18 21:02 Tylenol - PO Q3H PRN PAIN LEVEL 1 - 3 Al Hydroxide/Mg Hydroxide 30 ml 06/22/18 22:10 06/22/18 23:15 Mylanta Oral Suspension - PO 30 ml Q6H PRN Administration DYSPEPSIA Ondansetron HCl 4 mg 06/22/18 14:56 Zofran Injection IVPUSH Q6H PRN NAUSEA ASSESSMENT/PLAN: 1. Chest pain - Etiology unclear, but costochondritis or pericarditis are likely culprits. Her ECHO didnot show any pericardial effusion, but will get ESR and CRP in case she has pericarditis. Will repeat EKG and troponin to rule out ACS. Continue tylenol for pain control PRN. Has been NPO for a while prior to CTA - will let her ingest fluids liberally since dehydration and anemia may be contributing to sinus tachycardia. Consult cardiology and pulmonary. Continue antibiotics for UTI. 2. Anemia - Do basic anemia work up including serial stool guaiacs, reticulocyte count and iron studies. Would benefit from high quality oral iron therapy. 3. Obesity - Post , will provide patient all the necessary assistance, counseling and positive reinforcement to facilitate weight loss. Consult insurance analyst. 4. DVT prophylaxis - Heparin 5000u sq tid. 5. Advance directives - Full code Dispo: We will continue to follow the patient. Thank you for this consultative opportunity.
[2018-06-23 03:59] VITALS: BMI 42.4
[2018-06-23 05:42] VITALS: BP 122/75; PULSE 90; TEMP 98.1
--- NOTE | 2018-06-23 09:50 | PN ---
Progress Note, Physician Chief Complaint: Events note CT chest does not show evidence of PTE LE Doppler negative for DVT History of Present Illness: Patient was seen and examined. Awake and alert. Chart was reviewed Denies chest pain, feels better with less SOB and no palpitations HR better - Current Medication List Current Medications: Active Medications Acetaminophen (Tylenol -) 650 mg PO Q3H PRN PRN Reason: PAIN LEVEL 1 - 3 Last Admin: 06/23/18 03:35 Dose: 650 mg Al Hydroxide/Mg Hydroxide (Mylanta Oral Suspension -) 30 ml PO Q6H PRN PRN Reason: DYSPEPSIA Last Admin: 06/22/18 23:15 Dose: 30 ml Ondansetron HCl (Zofran Injection) 4 mg IVPUSH Q6H PRN PRN Reason: NAUSEA - Objective Vital Signs: Vital Signs Temperature 98.1 F 06/23/18 05:41 Pulse Rate 90 06/23/18 05:41 Respiratory Rate 18 06/23/18 05:41 Blood Pressure 122/75 06/23/18 05:41 O2 Sat by Pulse Oximetry (%) 100 06/22/18 21:50 Eyes: Yes: PERRL HENT: Yes: Atraumatic Neck: Yes: Supple Cardiovascular: Yes: Regular Rate and Rhythm, S1, S2 Respiratory: Yes: CTA Bilaterally Gastrointestinal: Yes: Normal Bowel Sounds, Soft. No: Tenderness Edema: No Additional Findings/Remarks: - Review of Systems Constitutional: denies: Chills, Fever Cardiovascular: reports: Chest Pain, Shortness of Breath. denies: Palpitations Respiratory: reports: SOB, SOB on Exertion. denies: Cough, Hemoptysis, Orthopnea, PND, Wheezing Gastrointestinal: denies: Abdominal Pain, Constipation, Diarrhea, Melena, Nausea , Rectal Bleeding, Vomiting Genitourinary: denies: Dysuria, Hematuria Musculoskeletal: denies: Back Pain, Joint Pain Neurological: denies: Dizziness, Headache, Seizure, Syncope Labs: CBC, BMP 06/22/18 05:31 06/22/18 05:31 Laboratory Results - last 24 hr 06/22/18 06/22/18 06/22/18 09:15 12:25 13:20 ESR PTT (Actin FS) Troponin I < 0.02 C-Reactive Protein Stool Occult Blood Negative Blood Type O POSITIVE 06/22/18 06/22/18 06/23/18 14:19 23:26 02:22 ESR PTT (Actin FS) 32.8 33.4 Troponin I C-Reactive Protein 9.9 H Stool Occult Blood Blood Type 06/23/18 02:22 ESR 81 H PTT (Actin FS) Troponin I C-Reactive Protein Stool Occult Blood Blood Type Problem List - Problems (1) Shortness of breath Code(s): R06.02 - SHORTNESS OF BREATH (2) 35 weeks gestation of Code(s): Z3A.35 - 35 WEEKS GESTATION OF (3) Bronchial asthma Code(s): J45.909 - UNSPECIFIED ASTHMA, UNCOMPLICATED (4) Anemia Code(s): D64.9 - ANEMIA, UNSPECIFIED (5) Chest pain Code(s): R07.9 - CHEST PAIN, UNSPECIFIED Qualifiers: Chest pain type: unspecified Qualified Code(s): R07.9 - Chest pain, unspecified Assessment/Plan 1. Chest pain and SOB, etiology to be determined, ? musculoskeletal 2. Ruled out for PTE or DVT 3. 35 weeks 4. History of bronchial asthma 5. Anemia PLAN: 1. Heparin stopped 2. CTA noted with no PTE 3. Echocardiography does not reveal RV strain 4. Lower extremity Doppler negative 5. STUDENT SERVICES REPRESENTATIVE evaluation and continued care. Given Tylenol 6. Anemia work up can be done as outpatient Further plans are to follow. Discharge planning Epi Mchugh MD
--- NOTE | 2018-06-23 10:41 | PN ---
Physical Exam: SUBJECTIVE: Patient seen and examined sitting comfortably in bed. No new complaints no sob, no chest pain having breakfast. states is hurts when she touches her para sternum area but resolved with tylenol. OBJECTIVE: Vital Signs Period Temp Pulse Resp BP Sys/Valdez Pulse Ox Last 24 Hr 97.9 F-98.1 F 90-119 17-24 106-128/61-76 98-100 GENERAL: The patient is awake, alert, and fully oriented, in no acute distress. HEAD: Normal with no signs of trauma. EYES: PERRL, extraocular movements intact, sclera anicteric, conjunctiva clear. No ptosis. ENT: Ears normal, nares patent, oropharynx clear without exudates, moist mucous membranes. NECK: Trachea midline, full range of motion, supple. LUNGS: Breath sounds equal, clear to auscultation bilaterally, no wheezes, no crackles, no accessory muscle use. HEART: Regular rate and rhythm, S1, S2 without murmur, rub or gallop. ABDOMEN: Soft, nontender, nondistended, EXTREMITIES: 2+ pulses, warm, well-perfused, no edema. NEUROLOGICAL: Cranial nerves II through XII grossly intact. Normal speech, gait not observed. PSYCH: Normal mood, normal affect. SKIN: Warm, dry, Laboratory Results - last 24 hr 06/22/18 06/22/18 06/22/18 12:25 13:20 14:19 ESR PTT (Actin FS) 32.8 Troponin I < 0.02 C-Reactive Protein Stool Occult Blood Negative 06/22/18 06/23/18 06/23/18 23:26 02:22 02:22 ESR 81 H PTT (Actin FS) 33.4 Troponin I C-Reactive Protein 9.9 H Stool Occult Blood Active Medications Generic Name Dose Route Start Last Admin Trade Name Freq PRN Reason Stop Dose Admin Acetaminophen 650 mg 06/22/18 21:02 06/23/18 03:35 Tylenol - PO 650 mg Q3H PRN Administration PAIN LEVEL 1 - 3 Al Hydroxide/Mg Hydroxide 30 ml 06/22/18 22:10 06/22/18 23:15 Mylanta Oral Suspension - PO 30 ml Q6H PRN Administration DYSPEPSIA Ondansetron HCl 4 mg 06/22/18 14:56 Zofran Injection IVPUSH Q6H PRN NAUSEA ASSESSMENT/PLAN: 27F G1 0000 w/ pmhx of asthma presents with acute onset chest pain x1 day admitted for cardiac monitoring. 1. Chest pain and SOB: likely from cotochondritis 2. Ruled out for PTE or DVT 3. 35 weeks 4. History of bronchial asthma 5. Anemia PLAN: CTA negative duplex scan negative d. dimer can be elevated because of heparin stopped. 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 will signoff. Please contact with questions or concern. Thank you for the consult Visit type - Emergency Visit Emergency Visit: Yes ED Registration Date: 06/22/18 Care time: The patient presented to the Emergency Department on the above date and was hospitalized for further evaluation of their emergent condition. - New Patient This patient is new to me today: Yes Date on this admission: 06/23/18 - Critical Care Critical Care patient: No
--- NOTE | 2018-06-23 10:49 | PN ---
Progress Note, Physician Chief Complaint: Patient reports feeling much more comfortable since last night was given Maalox and Tylenol She slept and now free of pain History of Present Illness: 27yo P0 @ 35.5 wks admitted to telemetry with c/o chest pain and finding of 1 elevated cardiac enzyme ruled out for NE, PE and DVT - Current Medication List Current Medications: Active Medications Acetaminophen (Tylenol -) 650 mg PO Q3H PRN PRN Reason: PAIN LEVEL 1 - 3 Last Admin: 06/23/18 03:35 Dose: 650 mg Al Hydroxide/Mg Hydroxide (Mylanta Oral Suspension -) 30 ml PO Q6H PRN PRN Reason: DYSPEPSIA Last Admin: 06/22/18 23:15 Dose: 30 ml Ondansetron HCl (Zofran Injection) 4 mg IVPUSH Q6H PRN PRN Reason: NAUSEA - Objective Vital Signs: Vital Signs Temperature 98.1 F 06/23/18 05:41 Pulse Rate 90 06/23/18 05:41 Respiratory Rate 18 06/23/18 05:41 Blood Pressure 122/75 06/23/18 05:41 O2 Sat by Pulse Oximetry (%) 100 06/22/18 21:50 Constitutional: Yes: Well Nourished, No Distress, Calm Eyes: Yes: WNL, Conjunctiva Clear, EOM Intact HENT: Yes: WNL, Atraumatic, Normocephalic Neck: Yes: WNL, Supple, Trachea Midline Cardiovascular: Yes: WNL, Regular Rate and Rhythm Respiratory: Yes: WNL, Regular, CTA Bilaterally Gastrointestinal: Yes: WNL, Normal Bowel Sounds, Soft Genitourinary: Yes: Other (VE unchanged from 06/22/18 NST 130s Category 1 FHR TOCO no contructions) Breast(s): Yes: WNL Musculoskeletal: Yes: WNL Extremities: Yes: WNL Edema: No Integumentary: Yes: WNL Neurological: Yes: WNL, Alert, Oriented ...Motor Strength: WNL Psychiatric: Yes: WNL, Alert, Oriented Labs: CBC, BMP 06/22/18 05:31 06/22/18 05:31 Assessment/Plan 27yo P 0 @ 35.5 weeks, stable Improved significantly with Maalox and Tylenol Likely all complains related to GERD and Musculosceletal discomfort Also identified anemia Recommended to continue Maalox and Tylenol at home Dietary changes to improve anemia, and will refer to Heme for possible iron transfusion Pelvic rest and off any duty for the next 2 weeks till full term will follow with Dr. Oswald in 2 days
--- NOTE | 2018-06-23 11:52 | EKG ---
Test Reason : Blood Pressure : / mmHG Vent. Rate : 094 BPM Atrial Rate : 094 BPM P-R Int : 148 ms QRS Dur : 092 ms QT Int : 352 ms P-R-T Axes : 040 015 020 degrees QTc Int : 440 ms NORMAL SINUS RHYTHM NONSPECIFIC T WAVE ABNORMALITY ABNORMAL ECG WHEN COMPARED WITH ECG OF 22-JUN-2018 11:18, NO SIGNIFICANT CHANGE WAS FOUND Confirmed by MD PO, [id number] ([id number]) on 06/23/2018 11:51:51 AM Referred By: Confirmed By:EN FONTENOT MD
--- NOTE | 2018-06-23 13:00 | PN ---
Teaching Attending Note Name of Resident: Kraig Huddleston ATTENDING PHYSICIAN STATEMENT I saw and evaluated the patient. I reviewed the resident's note and discussed the case with the resident. I agree with the resident's findings and plan as documented with exceptions below. SUBJECTIVE: patient seen and examined, reports chest pressure, with movements, deep breaths and tender to touch. Improved with tylenol currently, no nausea, vomiting, palpitations, dypnea, dysuria, fevers, chills, vaginal bleeding or spotting or new concerns. OBJECTIVE: Vital Signs Period Temp Pulse Resp BP Sys/Valdez Pulse Ox Last 24 Hr 97.9 F-98.1 F 90-105 17-24 106-128/61-76 99-100 Intake & Output 06/20/18 06/21/18 06/22/18 06/23/18 23:59 23:59 23:59 23:59 Intake Total 40 0 Balance 40 0 Weight 270 lb 12.8 oz General: sitting in bed in no acute distress Chest: CTAB, no rales or wheezing, tenderness over sternal region, no erythema/ swelling noted Abdomen;soft, distended, positive bowel sounds Extremities: no edema Home Medications Medication Instructions Recorded Vit No.129/Iron/Folic 1 tab PO DAILY 06/22/18 [ One Daily Tablet] Acetaminophen [Tylenol -] 1,000 mg PO Q6H #100 tablet 06/23/18 Active Medications Acetaminophen (Tylenol -) 650 mg PO Q3H PRN PRN Reason: PAIN LEVEL 1 - 3 Last Admin: 06/23/18 03:35 Dose: 650 mg Al Hydroxide/Mg Hydroxide (Mylanta Oral Suspension -) 30 ml PO Q6H PRN PRN Reason: DYSPEPSIA Last Admin: 06/22/18 23:15 Dose: 30 ml Ondansetron HCl (Zofran Injection) 4 mg IVPUSH Q6H PRN PRN Reason: NAUSEA Laboratory Results - last 24 hr 06/22/18 06/22/18 06/22/18 12:25 13:20 14:19 ESR PTT (Actin FS) 32.8 Troponin I < 0.02 C-Reactive Protein Stool Occult Blood Negative 06/22/18 06/23/18 06/23/18 23:26 02:22 02:22 ESR 81 H PTT (Actin FS) 33.4 Troponin I C-Reactive Protein 9.9 H Stool Occult Blood CTA and 2D echo results noted ASSESSMENT AND PLAN: 27 yof 35 weeks , with PMHx of asthma, admitted with chest pain -Chest pain, suspect musculoskeletal given character and neg CTA/non concerning 2D echo and neg repeat troponin -35 weeks -Asthma -Asymptomatic pyuria ( no bacteria) Plan: Cardiology input noted, no events on telemetry, repeat trop neg. 2D echo noted. Anemia w/u outpatient. s/p ceftriaxone in ED, Further abx per obstetrics. Clinically well. No additional intervention from medicine standpoint. Will sign off Please feel free to contact with questions or concerns Thank you for the consult.
== END 2018-06-23 12:59 | disposition home or self-care (01) | DRG 566 ==
LOC: JER 04:16 → JERBED 08:10 → OBSVTOIN 14:56 → J4W 21:40
PROVIDERS: ADMIT Obstetrics & Gynecology; ATTEND Obstetrics & Gynecology
DX: O26.893 Other specified pregnancy related conditions, third trimester (principal); O99.013 Anemia complicating pregnancy, third trimester; K21.9 Gastro-esophageal reflux disease without esophagitis; D64.9 Anemia, unspecified; R07.9 Chest pain, unspecified; Z3A.35 35 weeks gestation of pregnancy; J45.909 Unspecified asthma, uncomplicated; R06.02 Shortness of breath; O99.213 Obesity complicating pregnancy, third trimester; E66.9 Obesity, unspecified; Z68.41 Body mass index [BMI] 40.0-44.9, adult; O23.43 Unspecified infection of urinary tract in pregnancy, third trimester
CPT/HCPCS: 36415; 71275-TC; 80053; 81003; 81015; 82272; 82550; 84484; 85025; 85379; 85651; 85730; 86140; 86850; 86900; 86901; 87086; 93005; 93010; 93306-TC; 93970-TC; 99285-25; G0378; J0131; J1644

== ENCOUNTER 2018-07-13 23:00 | Inpatient (IN) | payer OTHER ==
[2018-07-14] MEDS ORDERED: OXYTOCIN 20 UNITS in 0.9% NS 20 UNIT/1,000 ML INFUS.BAG IV ONE ×2 (00:39→04:26)
[2018-07-14 00:40] LABS: BASO % 0.8 % (0-2.0); EOS % 0.2 % (0-4.5); HEMATOCRIT 29.5 % (32.4-45.2); HEMOGLOBIN 9.9 GM/dL (10.7-15.3); LYMPH % 22.6 % (8-40); MCH 26.6 pg (25.7-33.7); MCHC 33.6 g/dl (32.0-36.0); MEAN CELL VOLUME 79.1 fl (80-96); MEAN PLT VOLUME 8.3 fl (7.5-11.1); MONO % 4.2 % (3.8-10.2); NEUT % 72.2 % (42.8-82.8); PLATELET COUNT 268 K/MM3 (134-434); RBC 3.73 M/mm3 (3.60-5.2); RDW 17.2 % (11.6-15.6); WHITE BLOOD COUNT 9.6 K/mm3 (4.0-10.0)
[2018-07-14 00:52] LABS: INR 1.01 (0.83-1.09); PROTHROMBIN TIME (PATIENT) 11.9 SEC (9.7-13.0)
[2018-07-14 01:00] LABS: ANION GAP 8 MMOL/L (8-16); BLOOD UREA NITROGEN 14 mg/dL (7-18); CALCIUM 8.4 mg/dL (8.5-10.1); CHLORIDE 106 mmol/L (98-107); CO2 22 mmol/L (21-32); CREATININE 0.5 mg/dL (0.55-1.3); GLUCOSE,RANDOM 100 mg/dL (74-106); POTASSIUM 3.5 mmol/L (3.5-5.1); SODIUM 137 mmol/L (136-145)
[2018-07-14] MEDS: OXYTOCIN 20 UNITS in 0.9% NS 20 UNIT/1,000 ML INFUS.BAG IV SCH ×2 (01:25→04:54)
[2018-07-14] MEDS ORDERED: OXYTOCIN 10 UNITS/ML VIAL ONE (01:33)
[2018-07-14] MEDS ORDERED: LIDOCAINE HCL 1% PRESERVATIVE FREE - 30ML VIAL ONE (01:33)
[2018-07-14] MEDS ORDERED: BENZOCAINE 20% 57 GM BOTTLE TP PRN (01:55)
[2018-07-14] MEDS ORDERED: BISACODYL 10 MG SUPP.RECT RC PRN (01:55)
[2018-07-14] MEDS ORDERED: BENZOCAINE 28 GM HEMORRHOIDAL OINTMENT TP PRN (01:55)
[2018-07-14] MEDS ORDERED: METHYLERGONOVINE MALEATE 0.2 MG/1 ML AMP IM PRN (01:55)
[2018-07-14] MEDS ORDERED: IBUPROFEN 600 MG TABLET (FP) PO PRN (01:55)
[2018-07-14] MEDS ORDERED: ACETAMINOPHEN 325 MG TABLET (FP) PO PRN (01:55)
[2018-07-14] MEDS ORDERED: WITCH HAZEL 50% (TUCKS) 40 PAD/JAR PAD TP PRN (01:55)
--- NOTE | 2018-07-14 01:55 | HP ---
Past Medical History - Primary Care Physician PCP:: Treasure Enriquez - Admission Chief Complaint: 27yo P0 @ 38 wks. with PROM, clear fluid @ 9:30pm, + contructions, no VB, + FM History of Present Illness: 1. Obesity BMI 41 - GCT abn - GTT wnl 2. GBS neg History Source: Patient, Medical Record Limitations to Obtaining History: No Limitations - Past Medical History Pulmonary: Yes: Asthma, Other (Seasonal allergies) Gastrointestinal: Yes: Other (Obesity) Reproductive: Yes: Other (HPV x 3) ...: 1 Heme/Onc: Yes: Anemia - Past Surgical History Past Surgical History: Yes: Tonsillectomy Hx Myomectomy: No Hx Transabdominal Cerclage: No Additional Surgical History: Breast reduction - Smoking History Smoking history: Never smoked Have you smoked in the past 12 months: No - Alcohol/Substance Use Hx Alcohol Use: No - Social History History of Recent Travel: No Home Medications - Allergies Allergies/Adverse Reactions: Allergies Allergy/AdvReac Type Severity Reaction Status Date / Time No Known Drug Allergies Allergy Verified 07/01/18 15:48 pepper (genus Capsicum) Allergy Itching Verified 07/01/18 15:48 - Home Medications Home Medications: Ambulatory Orders Vit No.129/Iron/Folic [ One Daily Tablet] 1 tab PO DAILY Family Disease History - Family Disease History Family Disease History: Diabetes: Father, Heart Disease: Mother Review of Systems - Review of Systems Constitutional: reports: No Symptoms Eyes: reports: No Symptoms HENT: reports: No Symptoms Neck: reports: No Symptoms Cardiovascular: reports: No Symptoms Respiratory: reports: No Symptoms Gastrointestinal: reports: No Symptoms Genitourinary: reports: No Symptoms (LOF and contructions), Other Breasts: reports: No Symptoms Reported Musculoskeletal: reports: No Symptoms Integumentary: reports: No Symptoms Neurological: reports: No Symptoms Endocrine: reports: No Symptoms Hematology/Lymphatic: reports: No Symptoms Psychiatric: reports: No Symptoms Physical Exam - Maternity Constitutional: Yes: Well Nourished, No Distress Eyes: Yes: WNL HENT: Yes: WNL, Atraumatic, Normocephalic Neck: Yes: WNL, Supple, Trachea Midline Cardiovascular: Yes: WNL, Regular Rate and Rhythm Lungs: Clear to auscultation Breast(s): Yes: WNL - Abdominal Exam/OB Fundal Height: 40 Number of Fetuses: Single Presentation: Vertex Contractions: Yes Regularity: Regular (Q 2-3 min) Intensity: Moderate Monitor Mode: External Heart Rate (range): 140 Heart Rate Location: Midline Category: I Accelerations: Uniform Decelerations: None - Vaginal Exam/OB Vaginal Bleediing: No Dilatation (cm): 5 Effacement (%): 90 Amniotic Membrane Status: Ruptured Nitrazine Test: Positive Amniotic Fluid: Yes: Clear Presentation: Vertex/Position Station: -3 - Physical Exam Musculoskeletal: Yes: WNL Extremities: Yes: WNL Edema: No Integumentary: Yes: WNL Deep Tendon Reflex Grade: Normal +2 ...Motor Strength: WNL Psychiatric: Yes: WNL, Alert, Oriented - Labs Lab Results: CBC, BMP 07/14/18 00:20 07/14/18 00:20 Assessment/Plan 27yo P0 @ 38.3wks with PROM in active labor Gynecoid pelvis, EFW - 7lb Admit to L&D IVF, NPO Continuous monitoring Anticipate
--- NOTE | 2018-07-14 01:55 | PN ---
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
[2018-07-14] MEDS ORDERED: IBUPROFEN 600 MG TABLET (FP) PO ONE (02:15)
[2018-07-14] MEDS ORDERED: ACETAMINOPHEN 325 MG TABLET (FP) ONE (02:15)
[2018-07-14 02:43] LABS: VENOUS PH 7.32 (7.31-7.41)
[2018-07-14 03:20] VITALS: BMI 42.0
[2018-07-14] MEDS ORDERED: TUBERCULIN PPD 5 TU/0.1ML SYRINGE (IN PATIENT USE ONLY) ID ONE (06:30)
[2018-07-14] MEDS: FERROUS SO4 325 MG TABLET (FP) PO SCH ×2 (08:03→17:18)
[2018-07-14] MEDS: ENOXAPARIN NA (PORCINE) 40 MG/0.4 ML DISP.SYRIN SQ SCH (09:54)
[2018-07-14] MEDS: PRENATAL VITAMINS W/ FOLIC ACID TABLET (FP) PO SCH (09:54)
[2018-07-15 07:38] LABS: BASO % 0.3 % (0-2.0); EOS % 0.6 % (0-4.5); HEMATOCRIT 25.3 % (32.4-45.2); HEMOGLOBIN 8.4 GM/dL (10.7-15.3); LYMPH % 24.8 % (8-40); MCH 26.8 pg (25.7-33.7); MCHC 33.3 g/dl (32.0-36.0); MEAN CELL VOLUME 80.4 fl (80-96); MEAN PLT VOLUME 8.5 fl (7.5-11.1); MONO % 4.1 % (3.8-10.2); NEUT % 70.2 % (42.8-82.8); PLATELET COUNT 250 K/MM3 (134-434); RBC 3.15 M/mm3 (3.60-5.2); RDW 17.2 % (11.6-15.6); WHITE BLOOD COUNT 11.4 K/mm3 (4.0-10.0)
[2018-07-15] MEDS: FERROUS SO4 325 MG TABLET (FP) PO SCH ×2 (08:14→17:15)
--- NOTE | 2018-07-15 08:29 | PN ---
Post Progress Note - Subjective Subjective: Patient without acute complaints. Reports tolerating oral intake without nausea or vomiting. Ambulating without dizziness. Denies fevers or chills. Pain well controlled with oral pain medication. Pumping without issue, baby not latching yet. Type of Delivery: Vital Signs: Vital Signs Temperature 98.5 F 07/14/18 22:00 Pulse Rate 86 07/14/18 22:00 Respiratory Rate 18 07/14/18 22:00 Blood Pressure 117/60 07/14/18 22:00 O2 Sat by Pulse Oximetry (%) 99 07/14/18 03:30 Breast Exam: Yes: Soft Uterus: Yes: Fundus below umbilicus, Non-tender Abdomen/GI: Yes: Abdomen soft, Passing flatus, Tolerating PO Lochia: Yes: Rubra Lochia, amount: Small Extremities: Yes: Calves non-tender Perineum: Yes: Intact - Labs Labs: CBC WBC 11.4 K/mm3 (4.0-10.0) H 07/15/18 06:35 RBC 3.15 M/mm3 (3.60-5.2) L 07/15/18 06:35 Hgb 8.4 GM/dL (10.7-15.3) L 07/15/18 06:35 Hct 25.3 % (32.4-45.2) L 07/15/18 06:35 MCV 80.4 fl (80-96) 07/15/18 06:35 MCH 26.8 pg (25.7-33.7) 07/15/18 06:35 MCHC 33.3 g/dl (32.0-36.0) 07/15/18 06:35 RDW 17.2 % (11.6-15.6) H 07/15/18 06:35 Plt Count 250 K/MM3 (134-434) 07/15/18 06:35 MPV 8.5 fl (7.5-11.1) 07/15/18 06:35 Absolute Neuts (auto) 8.0 K/mm3 (1.5-8.0) 07/15/18 06:35 Neutrophils % 70.2 % (42.8-82.8) 07/15/18 06:35 Lymphocytes % 24.8 % (8-40) 07/15/18 06:35 Monocytes % 4.1 % (3.8-10.2) 07/15/18 06:35 Eosinophils % 0.6 % (0-4.5) D 07/15/18 06:35 Basophils % 0.3 % (0-2.0) 07/15/18 06:35 Nucleated RBC % 0 % (0-0) 07/15/18 06:35 Assessment/Plan 27yo P1 s/p , doing well stable, afebrile. Asymptomatic for anemia. care instructions reviewed. Continue routine care. Ambulation encouraged Discharge instruction reviewed.
--- NOTE | 2018-07-15 08:33 | DS ---
Physical Exam-CALL CENTER AGENT Vital Signs: Vital Signs Temperature 98.5 F 07/14/18 22:00 Pulse Rate 86 07/14/18 22:00 Respiratory Rate 18 07/14/18 22:00 Blood Pressure 117/60 07/14/18 22:00 O2 Sat by Pulse Oximetry (%) 99 07/14/18 03:30 Constitutional: Yes: Well Nourished, No Distress, Calm Eyes: Yes: WNL, Conjunctiva Clear HENT: Yes: WNL, Atraumatic, Normocephalic Neck: Yes: WNL, Supple, Trachea Midline Cardiovascular: Yes: WNL, Regular Rate and Rhythm Respiratory: Yes: WNL, Regular, CTA Bilaterally Gastrointestinal: Yes: WNL, Normal Bowel Sounds, Soft ...Rectal Exam: Yes: Deferred Renal/: Yes: WNL ....Post : Yes: Uterus firm, Uterus non-tender, Moderate lochia serosa Breast(s): Yes: WNL Musculoskeletal: Yes: WNL Extremities: Yes: WNL Edema: Yes Edema: LLE: Trace, RLE: Trace Integumentary: Yes: WNL Neurological: Yes: WNL, Alert, Oriented ...Motor Strength: WNL Psychiatric: Yes: WNL, Alert, Oriented Labs: CBC, BMP 07/15/18 06:35 07/14/18 00:20 Delivery - Delivery Vaginal Delivery: No Problems Type of Anesthesia: Local Episiotomy/Laceration: 1st degree EBL (cc): 400 Delivery, Single - Stages of Labor Date 1st Stage Initiatied: 07/13/18 Time 1st Stage Initiated: 21:50 Date 2nd Stage Initiated: 07/14/18 Time 2nd Stage Initiated: 01:05 Date of Delivery: 07/14/18 Time of Delivery: 01:23 Time Placenta Delivered: 01:25 Placenta: Yes: Spontaneous, Normal Configuration - 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 You may walk unlimited danielle of and climb stairs. You may resume driving the car when you feel safe and comfortable behind the wheel. No sexual activity as instructed. Wound care If you have a bandage, leave it on, and keep dry for 48-72 hours. After that time discard the outer bandage. If they are tapes on the skin under the out of bandage leave them in place. They will peel off in the next 7 to 10 days. Do Not Peel them off. You may shower the day after surgery. If there are tapes present on the skin, you may shower over them. Diet There are no dietary restrictions. Eat healthy, high-fiber foods. Drink 6 to 8 glasses of liquid each day. This will assist in keeping your bowels are regular. Pain management You may take Tylenol or acetaminophen or Ibuprofen (for example, Motrin, Advil etc.) from my pain prescription medication is ordered should be taken as prescribed for moderate to severe pain. Call MD for any of the following: Severe pain not relieved by medication Fever of 101 or higher Excessive bleeding or drainage on dressing Inability to urinate Referrals: Julianna Oswald MD [Staff Physician] - Disposition: HOME - Home Medications Comprehensive Discharge Medication List: Ambulatory Orders Vit No.129/Iron/Folic [ One Daily Tablet] 1 tab PO DAILY
[2018-07-15] MEDS ORDERED: PNEUMOCOCCAL 23 VACCINE 0.5 ML VIAL IM ONE (10:00)
[2018-07-15] MEDS ORDERED: PNEUMOC 13-VAL CONJ-DIP CRM/PF 0.5 ML DISP.SYRIN IM ONE (10:00)
[2018-07-15] MEDS ORDERED: FLU VACCINE QUAD 60 MCG/0.5 ML (MDV 18-19) IM ONE (10:00)
[2018-07-15] MEDS: ENOXAPARIN NA (PORCINE) 40 MG/0.4 ML DISP.SYRIN SQ SCH (10:59)
[2018-07-15] MEDS: PRENATAL VITAMINS W/ FOLIC ACID TABLET (FP) PO SCH (10:59)
[2018-07-15] MEDS ORDERED: SENNOSIDES/DOCUSATE COMBO (SENNA PLUS) TABLET (UD) PO PRN (22:00)
[2018-07-16 08:21] VITALS: BP 116/67; PULSE 96; TEMP 98
[2018-07-16] MEDS: FERROUS SO4 325 MG TABLET (FP) PO SCH (08:46)
--- NOTE | 2018-07-16 09:48 | PN ---
Post Progress Note - Subjective Subjective: Patient without acute complaints. Reports tolerating oral intake without nausea or vomiting. Ambulating without dizziness. Denies fevers or chills. Pain well controlled with oral pain medication. without difficulty. Passing flatus. Post Day: 2 Type of Delivery: Vital Signs: Vital Signs Temperature 98 F 07/16/18 08:18 Pulse Rate 96 H 07/16/18 08:18 Respiratory Rate 20 07/16/18 08:18 Blood Pressure 116/67 07/16/18 08:18 O2 Sat by Pulse Oximetry (%) 99 07/14/18 03:30 Breast Exam: Yes: Engorged Uterus: Yes: Fundus Firm, Fundus below umbilicus Abdomen/GI: Yes: Abdomen soft, Passing flatus, Tolerating PO. No: Abdominal Distention, Tender Lochia: Yes: Serosa Lochia, amount: Small Extremities: Yes: Calves non-tender, Edema (trace) Perineum: Yes: Laceration Activity: Ambulating - Labs Labs: CBC WBC 11.4 K/mm3 (4.0-10.0) H 07/15/18 06:35 RBC 3.15 M/mm3 (3.60-5.2) L 07/15/18 06:35 Hgb 8.4 GM/dL (10.7-15.3) L 07/15/18 06:35 Hct 25.3 % (32.4-45.2) L 07/15/18 06:35 MCV 80.4 fl (80-96) 07/15/18 06:35 MCH 26.8 pg (25.7-33.7) 07/15/18 06:35 MCHC 33.3 g/dl (32.0-36.0) 07/15/18 06:35 RDW 17.2 % (11.6-15.6) H 07/15/18 06:35 Plt Count 250 K/MM3 (134-434) 07/15/18 06:35 MPV 8.5 fl (7.5-11.1) 07/15/18 06:35 Absolute Neuts (auto) 8.0 K/mm3 (1.5-8.0) 07/15/18 06:35 Neutrophils % 70.2 % (42.8-82.8) 07/15/18 06:35 Lymphocytes % 24.8 % (8-40) 07/15/18 06:35 Monocytes % 4.1 % (3.8-10.2) 07/15/18 06:35 Eosinophils % 0.6 % (0-4.5) D 07/15/18 06:35 Basophils % 0.3 % (0-2.0) 07/15/18 06:35 Nucleated RBC % 0 % (0-0) 07/15/18 06:35 Assessment/Plan 27 yo PPD # 2 s/p , afebrile, vital signsstable, asymptomatic anemia, doing well 1. Patient stable for discharge home today. 2. Patient encouraged to contact MD for: - Severe pain not controlled by oral pain medication - Fevers or chills - Nausea or vomiting, intolerance of oral intake 3. Patient to follow up in office in 4-6 weeks for visit
[2018-07-16] MEDS: PRENATAL VITAMINS W/ FOLIC ACID TABLET (FP) PO SCH (10:41)
[2018-07-16] MEDS: ENOXAPARIN NA (PORCINE) 40 MG/0.4 ML DISP.SYRIN SQ SCH (10:41)
== END 2018-07-16 11:55 | disposition home or self-care (01) | DRG 560 ==
LOC: JDEL 23:00 → JLDR 23:30 → J3W 07-14 04:40
PROVIDERS: ADMIT Obstetrics & Gynecology; ATTEND Obstetrics & Gynecology
PROC: 10E0XZZ Delivery of Products of Conception, External Approach (ICD-10-PCS; principal; 2018-07-14)
PROC: 0HQ9XZZ Repair Perineum Skin, External Approach (ICD-10-PCS; 2018-07-14)
DX: O99.02 Anemia complicating childbirth (principal); D64.9 Anemia, unspecified; O70.0 First degree perineal laceration during delivery; Z3A.38 38 weeks gestation of pregnancy; Z37.0 Single live birth
CPT/HCPCS: 36415; 36600; 59409; 80048; 82803; 85025; 85610; 85730; 86593; 86850; 86900; 86901; 87389; 90732; G0009

== ENCOUNTER 2022-11-02 15:50 | Inpatient (IN) | payer OTHER ==
[2022-11-02 17:30] VITALS: BMI 40.7
[2022-11-02] MEDS ORDERED: OXYTOCIN 30 UNITS in 0.9% NS 30 UNIT/500 ML INFUS.BAG IVPB SCH (18:00)
[2022-11-02] MEDS ORDERED: ELECTROLYTE-148 SOLN 1,000 ML IV SCH ×2 (18:00→20:00)
[2022-11-02 18:17] LABS: BASO % 0.7 % (0-2.0); EOS % 0.5 % (0-4.5); HEMATOCRIT 32.4 % (32.4-45.2); HEMOGLOBIN 10.7 GM/dL (10.7-15.3); MEAN CELL VOLUME 81.8 fl (80-96); MEAN PLT VOLUME 8.1 fl (7.5-11.1); MONO % 4.6 % (3.8-10.2); NEUT % 79.2 % (42.8-82.8); PLATELET COUNT 233 10^3/uL (134-434); RBC 3.96 M/mm3 (3.60-5.2); RDW 17.9 % (11.6-15.6); WHITE BLOOD COUNT 7.7 K/mm3 (4.0-10.0)
[2022-11-02] MEDS ORDERED: OXYTOCIN 30 UNITS in 0.9% NS 30 UNIT/500 ML INFUS.BAG IVPB ONE (18:20)
[2022-11-02 18:24] LABS: INR 1.06 (0.83-1.09); PROTHROMBIN TIME (PATIENT) 12.3 SEC (9.7-13.0)
[2022-11-02 18:26] LABS: ACTIVATED PTT 29.9 SECONDS (25.2-36.5)
[2022-11-02 19:24] LABS: POTASSIUM 3.8 mmol/L (3.5-5.1)
[2022-11-02 19:26] LABS: CALCIUM 9.2 mg/dL (8.5-10.1)
[2022-11-02 19:27] LABS: BLOOD UREA NITROGEN 9.8 mg/dL (7-18)
[2022-11-02 19:30] LABS: CREATININE 0.7 mg/dL (0.55-1.3)
[2022-11-02] MEDS ORDERED: LIDOCAINE HCL 1% PRESERVATIVE FREE - 30ML VIAL ONE (19:49)
[2022-11-02] MEDS ORDERED: OXYTOCIN 20 UNITS in 0.9% NS 20 UNIT/1,000 ML INFUS.BAG IV ONE (19:50)
[2022-11-02 21:16] LABS: HIV INTERPRETATION NEGATIVE (NEGATIVE)
[2022-11-02] MEDS ORDERED: WITCH HAZEL 50% (TUCKS) 40 PAD/JAR PAD TP PRN (21:23)
[2022-11-02] MEDS ORDERED: ACETAMINOPHEN 325 MG TABLET (FP) PO PRN (21:23)
[2022-11-02] MEDS ORDERED: BISACODYL 10 MG SUPP.RECT RC PRN (21:23)
[2022-11-02] MEDS ORDERED: BENZOCAINE 20% 57 GM BOTTLE TP PRN (21:23)
[2022-11-02] MEDS ORDERED: BENZOCAINE 28 GM HEMORRHOIDAL OINTMENT TP PRN (21:23)
[2022-11-02] MEDS ORDERED: METHYLERGONOVINE MALEATE 0.2 MG/1 ML AMP IM PRN (21:23)
[2022-11-02] MEDS ORDERED: OXYTOCIN 20 UNITS in 0.9% NS 20 UNIT/1,000 ML INFUS.BAG IV SCH (21:30)
[2022-11-02 21:44] LABS: CORD BASE EXCESS -3.7 mmol/L (0-2); CORD HCO3 21.8 mmHg (20-29); CORD HCO3 22.1 mmHg (20-29); CORD PCO2 41.1 mmHg (30-78); CORD PCO2 43.6 mmHg (30-78); CORD pH 7.322 (7.14-7.44); CORD pH 7.342 (7.14-7.44)
[2022-11-02] MEDS: IBUPROFEN 600 MG TABLET (FP) PO PRN (22:45)
[2022-11-02] MEDS ORDERED: IBUPROFEN 600 MG TABLET (FP) PO ONE (22:47)
[2022-11-03 08:34] LABS: BASO % 0.2 % (0-2.0); EOS % 0.3 % (0-4.5); HEMOGLOBIN 9.7 GM/dL (10.7-15.3); LYMPH % 14.9 % (8-40); MCH 26.9 pg (25.7-33.7); MCHC 32.4 g/dl (32.0-36.0); MEAN CELL VOLUME 82.9 fl (80-96); MEAN PLT VOLUME 9.1 fl (7.5-11.1); MONO % 4.5 % (3.8-10.2); NEUT % 80.1 % (42.8-82.8); PLATELET COUNT 230 10^3/uL (134-434); RBC 3.62 M/mm3 (3.60-5.2); RDW 17.6 % (11.6-15.6); WHITE BLOOD COUNT 10.9 K/mm3 (4.0-10.0)
[2022-11-03] MEDS ORDERED: SENNOSIDES/DOCUSATE COMBO (SENNA PLUS) TABLET (UD) PO PRN (22:00)
[2022-11-04 11:10] VITALS: BP 106/69; PULSE 64; RESP 16; TEMP 98
[2022-11-04] MEDS: IBUPROFEN 600 MG TABLET (FP) PO PRN (14:48)
[2022-11-06 10:38] LABS: POC NITRAZINE NEG
== END 2022-11-04 20:02 | disposition home or self-care (01) | DRG 560 ==
LOC: JDEL 15:50 → JLDR 16:40 → J3W 22:57
PROVIDERS: ADMIT Obstetrics & Gynecology; ATTEND Obstetrics & Gynecology
PROC: 10E0XZZ Delivery of Products of Conception, External Approach (ICD-10-PCS; principal; 2022-11-02)
DX: O99.214 Obesity complicating childbirth (principal); O26.873 Cervical shortening, third trimester; Z3A.37 37 weeks gestation of pregnancy; Z37.0 Single live birth
CPT/HCPCS: 36415; 36600; 59025; 80048; 82803; 83986-QW; 85025; 85610; 85730; 86780; 86850; 86900; 86901; 87389